=== PATIENT | female | born 1995 | race Caucasian/White ===

== ENCOUNTER 2021-01-27 09:50 | Emergency (ER) | payer SELFPAY ==
[~2021-01-27] VITALS: Ht 157.5 cm; Wt 44.5 kg
[2021-01-27] MEDS ORDERED: LORAZEPAM INJ 2 MG/ML VIAL ONE (09:53)
--- NOTE | 2021-01-27 10:00 | NUR ---
ASSUME PT CARE, WAS BIB [facility] FOR ANXIETY, HALLUCINATIONS S/P HALLUCINOGEN AND COCAINE USE LAST NIGHT. PT HAS HX OF SCHIZOPRENIA PER LUBRICATING MACHINE TENDER REPORT. GOWNED, PLACED ON MONITOR. TACHY POLITICAL WORKER. W/ ORDERS FROM DR SULTANA. WILL CARRY OUT.
[2021-01-27] MEDS: IV NS 0.9% 1,000 ML BAG IV ONE ×2 (10:05→10:10)
[2021-01-27] MEDS: LORAZEPAM INJ 2 MG/ML VIAL IV ONE (10:05)
--- NOTE | 2021-01-27 10:05 | NUR ---
IV LINE STARTED. BLOOD SAMPLE COLLECTED. LAB CALLED FOR PLASTICS SCIENTIST. MEDICATED ORDERED. SEE EMAR.
[2021-01-27 10:24] LABS: BILIRUBIN,URINE Negative (NEGATIVE); COLOR,URINE YELLOW (YELLOW); LEUKOCYTE ESTERASE ,URINE Negative (NEGATIVE); NITRITE, URINE Negative (NEGATIVE); PROTEIN,URINE Trace mg/dl (NEGATIVE); UGLUCOSE Negative (NEGATIVE)
[2021-01-27 10:24] LABS: BASOPHILS # (AUTO) 0.3 K/uL (0.0-0.2); BASOPHILS % (AUTO) 2.8 % (0.0-2.0); EOSINOPHILS % (AUTO) 2.2 % (0.0-6.0); HEMATOCRIT 43 % (33-45); HEMOGLOBIN 14.7 g/dL (11.5-14.8); LYMPHOCYTES # (AUTO) 1.9 K/uL (0.8-4.8); LYMPHOCYTES % (AUTO) 21.1 % (20.0-44.0); MEAN CORPUSCULAR HGB CONC 34 g/dl (31.0-36.0); MEAN CORPUSCULAR VOLUME 93 fL (82-100); MONOCYTES # (AUTO) 0.8 K/uL (0.1-1.30); MONOCYTES % (AUTO) 9.5 % (2.0-12.0); NEUTROPHILS # (AUTO) 5.7 K/uL (1.8-8.9); NEUTROPHILS % (AUTO) 64.4 % (43.0-81.0); PLATELET COUNT (AUTO) 278 K/uL (150-450); RED BLOOD CELL COUNT(AUTO) 4.59 MIL/uL (4.0-5.2); WHITE BLOOD COUNT (AUTO) 8.9 K/uL (4.3-11.0)
--- NOTE | 2021-01-27 10:28 | NUR ---
2nd iv fluid stopped, cancelled by dr. gongora
[2021-01-27 10:31] LABS: RBC,URINE NONE SEEN /HPF (0-2); WBC,URINE NONE SEEN /HPF (0-3)
[2021-01-27 10:31] LABS: CARBON DIOXIDE 27 mmol/L (21-32); CHLORIDE 101 mmol/L (98-107); CREATININE 0.9 mg/dL (0.6-1.3); GLUCOSE 130 mg/dL (74-106); POTASSIUM 3.5 mmol/L (3.5-5.1); SODIUM SERUM 138 mmol/L (136-145); UREA NITROGEN, BLOOD 13 mg/dL (7-18)
[2021-01-27 10:32] LABS: SQUAMOUS EPITHELIAL CELL,UR Rare /HPF (None Seen)
[2021-01-27 10:33] LABS: URINE AMORPHOUS URATE Many /HPF (None Seen)
[2021-01-27 10:36] LABS: BACTERIA,URINE Rare /HPF (None Seen); HYALINE CASTS, URINE Rare /LPF (None Seen)
[2021-01-27 10:46] LABS: ALANINE AMINOTRANSFERASE 18 U/L (12-78); ALBUMIN 4.5 g/dL (3.4-5.0); ALKALINE PHOSPHATASE 58 U/L (46-116); ASPARTATE AMINOTRANSFERASE 13 U/L (15-37); BILIRUBIN,DIRECT 0.1 mg/dL (0.0-0.2); BILIRUBIN,TOTAL 0.6 mg/dL (0.2-1.0); TOTAL PROTEIN, SERUM 7.8 g/dL (6.4-8.2)
[2021-01-27 10:47] LABS: ACETAMINOPHEN < 3 ug/ml (10-30); ALCOHOL, BLOOD 0 mg/dL (0-0)
--- NOTE | 2021-01-27 10:52 | NUR ---
PATIENT IS SLEEPING, EASILY AROUSABLE. STOPPED SCREAMING. VSS.
--- NOTE | 2021-01-27 12:22 | NUR ---
MINISTERIO SOLIS [phone] DAD
--- NOTE | 2021-01-27 14:04 | NUR ---
Electronics Installer note: ground services instructor consult requested for patient presenting with anxiety, hallucinations and substance use. Patient is a 26-year-old, female. SW attempted to interview patient at her bedside in the emergency department. Patient was unarousable. SW was unable to interview patient and assess the patient's need for community resources. PLAN: SS will remain available as needed.
--- NOTE | 2021-01-27 16:05 | NUR ---
PATIENT STILL ASLEEP, BUT EASILY AROUSABLE. NO DISTRESS NOTED. VSS.
--- NOTE | 2021-01-27 17:04 | NUR ---
ATTEMPTED TO WAKE UP THE PATIENT. BUT PATIENT STILL SLEEPY.
--- NOTE | 2021-01-27 18:32 | NUR ---
PATIENTS DAD AT BEDSIDE. WOKE UP PATIENT, DRESSED HER UP WITH SITTER'S ASSISTANCE. PATIENT AWAKE AND ALERT. IV removed. Catheter intact and site benign. Pressure and 4x4 applied to site. No bleeding noted. Patient discharged to home in stable condition. Written and verbal after care instructions given. Patient verbalizes understanding of instruction. Assisted via wheelchair to the car.
[2021-01-27 18:33] VITALS: BP 116/61
== END 2021-01-27 18:33 | disposition home or self-care (01) ==
LOC: ER 09:57
DX: R45.1 Restlessness and agitation (principal); F19.10 Other psychoactive substance abuse, uncomplicated; R00.0 Tachycardia, unspecified; F20.9 Schizophrenia, unspecified; Z60.2 Problems related to living alone
CPT/HCPCS: 36415; 80048; 80076; 80143; 80307; 80320; 81001; 84484; 84703; 85025; 93005; 96361; 96374; 99291; J2060; J7030 ×2; G0480